=== PATIENT | female | born 1990 | race Caucasian/White ===

== ENCOUNTER 2023-05-06 19:12 | Emergency (ER) | payer BC, MEDICAID ==
[~2023-05-06] VITALS: Ht 162.6 cm; Wt 91.0 kg
[~2023-05-06 19:12] MED LIST: ONDA4TAB6 PO
[2023-05-07] MEDS: rabies vaccine (PCEC)/PF 2.5 unit kit IMVAC ONE (00:46)
[2023-05-07 00:59] VITALS: BP 117/98; PULSE 87; RESP 16; TEMP 98.5; O2SAT 99
== END 2023-05-07 01:01 | disposition home or self-care (01) ==
LOC: ER 19:13
DX: S60.372A Other superficial bite of left thumb, initial encounter (principal); F31.9 Bipolar disorder, unspecified; W55.01XA Bitten by cat, initial encounter; Y93.89 Activity, other specified; Y92.89 Other specified places as the place of occurrence of the external cause; Y99.8 Other external cause status
CPT/HCPCS: 90471; 90675; 99283

== ENCOUNTER → 2023-07-31 | Outpatient (CLI) | payer MEDICAID | END | disposition home or self-care (01) | LOC: RAD 11:05 | PROVIDERS: ATTEND Physician Assistant | DX: R91.8 Other nonspecific abnormal finding of lung field (principal); R05.8 Other specified cough | CPT/HCPCS: 71046 ==

== ENCOUNTER 2024-04-16 16:22 | Emergency (ER) | payer MEDICAID ==
[~2024-04-16] VITALS: Ht 162.6 cm; Wt 87.2 kg
[2024-04-16] MEDS: rabies vaccine (PCEC)/PF 2.5 unit kit IMVAC ONE (18:26)
[2024-04-16] MEDS ORDERED: AMOX-580 PO (18:54)
[2024-04-16 18:58] VITALS: BP 122/68; PULSE 78; RESP 18; TEMP 98.7; O2SAT 99
== END 2024-04-16 19:00 | disposition home or self-care (01) ==
LOC: ER 16:22
DX: S61.259A Open bite of unspecified finger without damage to nail, initial encounter (principal); F31.9 Bipolar disorder, unspecified; F41.9 Anxiety disorder, unspecified; W55.81XA Bitten by other mammals, initial encounter; Y93.89 Activity, other specified; Y92.89 Other specified places as the place of occurrence of the external cause; Y99.8 Other external cause status
CPT/HCPCS: 90471; 90675; 99283

== ENCOUNTER 2024-04-29 13:11 | Emergency (ER) | payer MEDICAID ==
[~2024-04-29] VITALS: Ht 172.7 cm; Wt 78.6 kg
[2024-04-29 13:30] VITALS: TEMP 97.8
[2024-04-29] MEDS ORDERED: normal saline 1000ml 1,000 ML IV ONE (15:05)
[2024-04-29 15:30] VITALS: BP 98/48; PULSE 102; RESP 16; O2SAT 98
== END 2024-04-29 15:31 | disposition home or self-care (01) ==
LOC: ER 13:11
DX: T50.1X1A Poisoning by loop [high-ceiling] diuretics, accidental (unintentional), initial encounter (principal); I50.9 Heart failure, unspecified; F31.9 Bipolar disorder, unspecified; F41.9 Anxiety disorder, unspecified; Y92.89 Other specified places as the place of occurrence of the external cause
CPT/HCPCS: 93005; 99283

== ENCOUNTER 2024-04-29 19:44 | Emergency (ER) | payer MEDICAID ==
[~2024-04-29] VITALS: Ht 162.6 cm; Wt 79.5 kg
[2024-04-29 20:07] LABS: BASOPHILS % (AUTO) 0.3 % (0-1); EOSINOPHILS % (AUTO) 0.3 % (0-6); HEMATOCRIT 41.5 % (35.0-45.0); HEMOGLOBIN 14.1 g/dl (12.0-16.0); LYMPHOCYTES % (AUTO) 14.5 % (21-51); MEAN CORPUSCULAR HEMOGLOBIN 30.4 PG (27.0-31.0); MEAN CORPUSCULAR HGB CONC 33.9 g/dL (33.0-36.5); MEAN CORPUSCULAR VOLUME 89.6 FL (78-98); MEAN PLATELET VOLUME 7.1 FL (7.4-10.4); MONOCYTES # (AUTO) 0.7 X10'3 (0-0.9); NEUTROPHILS # (AUTO) 11.2 X10'3 (1.8-7.7); NEUTROPHILS % (AUTO) 79.9 % (42-75); PLATELET COUNT 442 X10'3 (140-440); RED BLOOD COUNT 4.63 X10'6 (4.20-5.60)
[2024-04-29 20:12] VITALS: BP 137/83; PULSE 108; RESP 18; TEMP 97.6; O2SAT 96
[2024-04-29 20:21] LABS: ALANINE AMINOTRANSFERASE 22 U/L (12-78); ALBUMIN 3.9 G/DL (3.4-5.0); ALBUMIN/GLOBULIN RATIO 0.9 (1.1-1.5); ALKALINE PHOSPHATASE 81 IU/L (46-116); ANION GAP 12 (8-16); ASPARTATE AMINO TRANSFERASE 8 U/L (10-37); BILIRUBIN,TOTAL 0.5 MG/DL (0.1-1.0); BLOOD UREA NITROGEN 12 MG/DL (7-18); BUN/CREATININE RATIO 13.8 (10.0-20.0); CHLORIDE 101 MMOL/L (99-107); CREATININE 0.87 MG/DL (0.40-0.90); GLUCOSE 136 MG/DL (70-104); POTASSIUM 3.8 MMOL/L (3.5-5.1); SODIUM 139 MMOL/L (135-145); TOTAL CARBON DIOXIDE 26.1 MMOL/L (24-32); TOTAL PROTEIN 8.3 G/DL (6.4-8.2); eCRCL 79 ML/MIN; eGFR 75 ML/MIN
[2024-04-29 20:27] LABS: MAGNESIUM 1.8 MG/DL (1.5-2.4); PRO BRAIN NATRIURETIC PEPTIDE 145 PG/ML (0-125)
[2024-04-29] MEDS: ketorolac trometh 15mg/ml vial 15 MG/ML ML IM ONE (21:11)
[2024-04-29] MEDS: ketorolac trometh 30MG/ML vial 30 MG/ML VIAL IM ONE (21:29)
== END 2024-04-29 21:33 | disposition home or self-care (01) ==
LOC: ER 19:45
DX: T50.1X1A Poisoning by loop [high-ceiling] diuretics, accidental (unintentional), initial encounter (principal); R07.89 Other chest pain; F31.9 Bipolar disorder, unspecified; F41.9 Anxiety disorder, unspecified; Z79.899 Other long term (current) drug therapy; Y92.89 Other specified places as the place of occurrence of the external cause
CPT/HCPCS: 36415; 71045; 80053; 83735; 83880; 84484; 85025; 93005; 99285